=== PATIENT | male | born 1995 | race Caucasian/White ===

== ENCOUNTER 2017-12-27 10:34 | Emergency (ER) | payer OTHER, SELFPAY ==
[2017-12-27 10:55] VITALS: BP 114/62; PULSE 58; RESP 18; TEMP 36.7; O2SAT 99
--- NOTE | 2017-12-27 10:59 | DI.RAD.S_ITS ---
PROCEDURE: XR CHEST 2V INDICATIONS: chest pain TECHNIQUE: 2 views of the chest were acquired. COMPARISON: None. FINDINGS: Surgical changes and devices: None. Lungs and pleura: No pleural effusions or pneumothorax. Lungs are clear. Mediastinum: Mediastinal contours are normal. Heart size is normal. Bones and chest wall: No suspicious bony abnormalities. Soft tissues appear unremarkable. IMPRESSION: Chest morphology is elongated, no pneumothorax seen, no pneumonia found. A source of current pain is not identified. Dictated by: Charlie Onofre M.D. on 12/27/2017 at 11:16 Approved by: Charlie Onofre M.D. on 12/27/2017 at 11:16
--- NOTE | 2017-12-27 12:33 | ED.CHESTPAIN ---
HPI - Chest Pain General Chief Complaint: Chest Pain Stated Complaint: LUNG CONTUSION Time Seen by Provider: 12/27/17 11:10 History of Present Illness HPI narrative: HPI 22-year-old male presents for evaluation of lower right sided chest wall pain that is been present for 2 weeks after he fell ~5 feet from a hammock onto his right side, patient evaluated in outside ED with negative chest x-ray, and mild worsening pain over the last 24+ hours and presented for repeat evaluation. Denies shortness of breath, interval reinjury, continues to take PO well pass flatus and stool at baseline. ROS with no recent constitutional symptoms. Exam Gen: Pleasant, non-toxic appearing, resting comfortably HEENT: NC, AT, PEERL, EOMI. Resp: Clear to auscultation bilaterally. Unlabored respirations with a normal work of breathing. Card: Regular rate and rhythm. Extremities warm and well perfused. GI: nontender to palpation throughout all quadrants, no rebound, no guarding, negative Lopez sign. : Deferred MSK: chest, back, abdomen visually normal without palpable abnormalities or tenderness to palpation. Neuro: AO x 3, no facial asymmetry, vision and hearing WNL. Heme/Lymph: Deferred Skin: Normal color with no visible lesions (other than noted above). Psych: Mood and affect appropriate. CXR: no acute cardiopulmonary abnormality. MDM Previous chart, nursing note, and vitals reviewed. A/P: 22-year-old male presents for evaluation of lower right sided chest wall pain that is been present for 2 weeks after he fell ~5 feet from a hammock onto his right side, patient evaluated in outside ED with negative chest x-ray, and mild worsening pain over the last 24+ hours and presented for repeat evaluation. Imaging without evidence of appreciable fracture, pneumothorax, or complications. Strongly doubt entered abdominal process given the lack of partner findings on history or exam. Suspect contusion versus occult fracture. No evidence of PE by history or exam. No evidence of further trauma on history or exam. Patient instructed to use NSAIDs and follow up with PCP as needed. Impression: chest wall pain (please reference below for remainder of encounter information) PERC negative (age >= 50 - N, HR >= 100 - N, SaO2 < 95 - N, prior DVT - N, trauma or surgery in last 4 weeks - N, hemoptysis - N, exogenous estrogen - N, unilateral leg swelling - N). Related Data Home Medications Medication Instructions Recorded Confirmed No Known Home Medications 12/27/17 12/27/17 [facility] Social History Smoking Status: Current some day smoker Exam Initial Vital Signs Initial Vital Signs: Vital Signs Temperature 98.1 F 12/27/17 10:55 Pulse Rate 58 L 12/27/17 10:55 Respiratory Rate 18 12/27/17 10:55 Blood Pressure 114/62 12/27/17 10:55 Pulse Oximetry 99 12/27/17 10:55 Course Orders Ordered: ED Orders 12/27/17 10:59 XR chest 2V Stat Vital Signs - 8 hr 12/27/17 10:55 Temperature 98.1 F Pulse Rate 58 L Respiratory Rate 18 Blood Pressure 114/62 Pulse Oximetry 99 Discharge Plan Departure Prescriptions: No Action No Known Home Medications RF: 0
[2017-12-27 12:40] VITALS: BP 107/68; PULSE 64; RESP 16; O2SAT 100
== END 2017-12-27 12:45 | disposition home or self-care (01) ==
PROVIDERS: Emergency Provider Emergency Medicine
DX: R07.89 Other chest pain (principal)
CPT/HCPCS: 71046; 99282; 99283